=== PATIENT | male | born 1975 | race Caucasian/White ===

== ENCOUNTER → 2017-03-27 09:08 | Outpatient (CLI) | payer MEDICAID ==
[2016-03-10 02:38] VITALS: BMI 42.2
[~2017-03-27 09:08] MED LIST: GLUCOPHAGE1000 MG PO; PRINIVIL20 MG PO; PROAIR HFA8.5 GM INH
== END | disposition home or self-care (01) ==
LOC: D.US 09:08
DX: N50.89 Other specified disorders of the male genital organs (principal)

== ENCOUNTER 2017-03-30 23:45 | Emergency (ER) | payer MEDICAID ==
[2016-03-10 02:38] VITALS: BMI 42.2
[2017-03-31 00:15] LABS: HEMATOCRIT 52.3 % (42.0-54.0); HEMOGLOBIN 18.8 g/dL (13.5-17.5); LYMPHOCYTES 16.1 % (15-50); MCH 32.9 pg (26.0-34.0); MCHC 35.9 g/dL (31.0-37.0); MCV 91.4 fL (80.0-100.0); MEAN PLATELET VOLUME 9.9 fL (7.4-10.4); NEUTROPHILS 81.3 % (40-80); RBC 5.72 10x6/uL (4.20-6.10); RDW 13.3 % (11.5-14.5); WBC 10.2 10x3/uL (4.8-10.8)
[2017-03-31 00:19] LABS: PLATELET COUNT 216 10x3/uL (130-400)
[2017-03-31 01:26] LABS: ALBUMIN 3.7 g/dL (3.4-5.0); ALKALINE PHOSPHATASE 109 U/L (46-116); ALT (SGPT) 18 U/L (10-68); CALC OSMOLALITY 272 mosm/kg (275-300); CALCIUM 8.7 mg/dL (8.5-10.1); CARBON DIOXIDE 22.3 mmol/L (21.0-32.0); CHLORIDE - SERUM 98 mmol/L (98-107); CREATININE - SERUM 0.9 mg/dL (0.6-1.3); GLUCOSE 196 mg/dL (74-106); POTASSIUM - SERUM 3.8 mmol/L (3.5-5.1); PROTEIN - SERUM 7.6 g/dL (6.4-8.2); SODIUM 134 mmol/L (136-145); UREA NITROGEN 12 mg/dL (7-18); eGFR NON AFRICAN AMERICAN > 90 mL/min (90-120)
== END 2017-03-31 04:30 | disposition home or self-care (01) ==
LOC: D.ER 23:45
PROVIDERS: Emergency Medicine
DX: N45.1 Epididymitis (principal); E11.9 Type 2 diabetes mellitus without complications; K21.9 Gastro-esophageal reflux disease without esophagitis; I10 Essential (primary) hypertension; F17.200 Nicotine dependence, unspecified, uncomplicated

== ENCOUNTER 2017-07-13 18:51 | Inpatient (IN) | payer MEDICAID ==
[2017-07-13 22:12] LABS: BASOPHILS 0.1 % (0-2); EOSINOPHILS 0.3 % (0-7); HEMOGLOBIN 19.7 g/dL (13.5-17.5); IMMATURE GRANULOCYTES 0.1 % (0-5); LYMPHOCYTES 15.7 % (15-50); MCH 33.2 pg (26.0-34.0); MCHC 35.8 g/dL (31.0-37.0); MCV 92.6 fL (80.0-100.0); MEAN PLATELET VOLUME 11.4 fL (7.4-10.4); MONOCYTES 6.1 % (2-11); NEUTROPHILS 77.7 % (40-80); RBC 5.94 10x6/uL (4.20-6.10); RDW 12.4 % (11.5-14.5); WBC 8.6 10x3/uL (4.8-10.8)
[2017-07-13 22:13] LABS: PLATELET COUNT 152 10x3/uL (130-400)
[2017-07-13 22:41] LABS: ALBUMIN 4.1 g/dL (3.4-5.0); ALKALINE PHOSPHATASE 118 U/L (46-116); ALT (SGPT) 25 U/L (10-68); CALC OSMOLALITY 280 mosm/kg (275-300); CALCIUM 9.3 mg/dL (8.5-10.1); CARBON DIOXIDE 26.9 mmol/L (21.0-32.0); CHLORIDE - SERUM 98 mmol/L (98-107); CREATININE - SERUM 0.8 mg/dL (0.6-1.3); GLUCOSE 219 mg/dL (74-106); POTASSIUM - SERUM 4.2 mmol/L (3.5-5.1); PROTEIN - SERUM 7.6 g/dL (6.4-8.2); SODIUM 137 mmol/L (136-145); UREA NITROGEN 12 mg/dL (7-18); eGFR NON AFRICAN AMERICAN > 90 mL/min (90-120)
[2017-07-13 22:59] LABS: CREATINE KINASE 242 UL (21-232)
[2017-07-13 23:12] LABS: CKMB 1.2 U/L (0.0-3.6)
[2017-07-14 04:00] VITALS: BP 160/106
[2017-07-14 07:13] VITALS: BP 161/102
[2017-07-14 12:57] VITALS: BP 145/102
--- NOTE | 2017-07-14 14:14 | NUR ---
DR. STREETER CALLED TO INFORM PT HAS A RETROPERINEAL BLEED FROM GROIN CVL. ORDERS RECEIVED FOR BREVING CONSULT. DR. DAVILA CALLED AND ORDERS RECEIVED TO REMOVE CVL. DR. DAVILA TO CALL DR. STREETER.
--- NOTE | 2017-07-14 15:24 | NUR ---
GROIN CVL REMOVED ORDERED. SITE CLEANED AND SUTURES REMOVED X2. TIP INTACT. PRESSURE HELD FOR 5 MINS. PRESSURE DRESSING PLACED. PT MOANING WITH PAIN. EXPLAINED TO PT THAT ONLY MED THAT IS ORDERED IS ATIVAN. PT BECAME AGRESSIVE AND STATED HE WOULD GET HIS OWN MEDS. HE ALSO STATED HE WANT TO GET THE "FUCK" OUT OF HERE. EXPLAINED TO PT THAT IT WOULD AMA. PTS MOTHER TALKED HIM INTO STAYING HERE. DR. MURRAY ORDERED ONE TIME MS 2 MG IV. MED GIVEN.
[2017-07-14 16:00] VITALS: BP 133/97
[2017-07-14 16:00] LABS: HEMATOCRIT 45.5 % (42.0-54.0)
[2017-07-14 16:05] LABS: HEMOGLOBIN 15.1 g/dL (13.5-17.5)
[2017-07-14 18:45] VITALS: BP 133/97; BMI 34.0
--- NOTE | 2017-07-14 19:50 | NUR ---
ASSESSMENT COMPLETE. AAO. PT GROANING; C/O PAIN 8/10 IN LEFT GROIN. S1S2. RR CLEAR EQUAL; UNLABORED. PERRLA. DRESSING TO LEFT GROIN; CDI. RADIAL AND PEDAL PULSES PALPATED. CONTINENT. URINAL AT BEDSIDE. RT UPPER ARM MID LINE; PATENT.
[2017-07-14 20:00] VITALS: BP 126/76
--- NOTE | 2017-07-14 20:30 | NUR ---
AT BEDSIDE. UPDATE GIVEN. QUESTIONS ANSWERED.
--- NOTE | 2017-07-14 23:15 | NUR ---
AND PT STATED CONCERNS ABOUT PT IV USE AND UNSURE IF HIV POSITIVE AND HEP C. WILL ORDER LABS.
--- NOTE | 2017-07-15 00:25 | NUR ---
DILAUDID TRUCK DRIVER INSTRUCTOR INITIATED PER ORDERS. RECLINER CHAIR TAKEN TO ROOM FOR PTS . JOSE CLIFFORD ALSO GIVEN AT PT REQUEST.
--- NOTE | 2017-07-15 03:03 | NUR ---
RESTING WITH EYES CLOSED, RESPERATIONS EVEN, NO S/S DISTRESS NOTED.
[2017-07-15 04:00] VITALS: BP 130/80
[2017-07-15 04:42] LABS: BASOPHILS 0.2 % (0-2); EOSINOPHILS 0.3 % (0-7); IMMATURE GRANULOCYTES 0.2 % (0-5); LYMPHOCYTES 14.8 % (15-50); MCH 32.7 pg (26.0-34.0); MCV 93.5 fL (80.0-100.0); MEAN PLATELET VOLUME 11.1 fL (7.4-10.4); MONOCYTES 5.9 % (2-11); NEUTROPHILS 78.6 % (40-80); PLATELET COUNT 108 10x3/uL (130-400); RBC 4.28 10x6/uL (4.20-6.10); RDW 12.8 % (11.5-14.5); WBC 10.9 10x3/uL (4.8-10.8)
[2017-07-15 04:45] LABS: ALKALINE PHOSPHATASE 104 U/L (46-116); CALCIUM 8.2 mg/dL (8.5-10.1); CARBON DIOXIDE 27.1 mmol/L (21.0-32.0); CHLORIDE - SERUM 100 mmol/L (98-107); GLUCOSE 189 mg/dL (74-106); MAGNESIUM - SERUM 1.7 mg/dL (1.8-2.4); PHOSPHOROUS 3.5 mg/dL (2.5-4.9); PROTEIN - SERUM 6.1 g/dL (6.4-8.2); SODIUM 134 mmol/L (136-145); eGFR NON AFRICAN AMERICAN 88 mL/min (90-120)
[2017-07-15 04:54] LABS: ALT (SGPT) 51 U/L (10-68); CALC OSMOLALITY 274 mosm/kg (275-300); UREA NITROGEN 19 mg/dL (7-18)
--- NOTE | 2017-07-15 07:38 | NUR ---
ASSESSMENT DONE. DEIES NEEDS.
--- NOTE | 2017-07-15 08:12 | NUR ---
ORDERS RECEIVED FROM DR. STREETER TO DECREASE PANMAN TO DELIVER 0.2 Q 30. LISA IN PHARMACY TO CHANGE ORDER. LISA WILL DO.
[2017-07-15 08:35] VITALS: BP 195/86
--- NOTE | 2017-07-15 10:23 | NUR ---
RESTS WITH EYES CLOSED. SCALE TESTER FOR PAIN CONTROL NOTED. CALL LIGHT IN REACH. WILL CONT. PLAN OF CARE.
[2017-07-15 12:40] VITALS: BP 129/78
[2017-07-15 16:44] VITALS: BP 139/89
--- NOTE | 2017-07-15 17:12 | NUR ---
WITHOUT CHANGES OR DISTRESS NOTED AT THIS TIME.
[2017-07-15 19:00] VITALS: BP 146/90
--- NOTE | 2017-07-15 20:59 | NUR ---
PATIENT IS ALERT IN BED, STATES "PLEASE UNPLUG MY PHONE BECAUSE MY KEEPS CALLING AND UPSETTING ME". I UNPLUGGED THE PHONE REQUESTED. I ASKED IF SHE CALLED THE NURSES STATION WHAT DOES HE WANT ME TO TELL HER AND HE STATES " TELL HER TO LEAVE ME ALONE AND IF SHE COMES UP HERE HE WILL HAVE ME TO CALL SECURITY". I TOLD HIM TO CALL IF ANY ISSUES COME UP. CALL LIGHT IS IN REACH.
--- NOTE | 2017-07-16 02:26 | NUR ---
CALL LIGHT IN REACH. WILL CONTINUE WITH PLAN OF CARE. 78 SR ON TELEMETRY
[2017-07-16 04:46] LABS: BASOPHILS 0.3 % (0-2); EOSINOPHILS 0.7 % (0-7); HEMATOCRIT 35.1 % (42.0-54.0); HEMOGLOBIN 12.5 g/dL (13.5-17.5); IMMATURE GRANULOCYTES 0.1 % (0-5); LYMPHOCYTES 19.4 % (15-50); MCH 32.8 pg (26.0-34.0); MCHC 35.6 g/dL (31.0-37.0); MCV 92.1 fL (80.0-100.0); MEAN PLATELET VOLUME 10.4 fL (7.4-10.4); MONOCYTES 6.3 % (2-11); NEUTROPHILS 73.2 % (40-80); PLATELET COUNT 118 10x3/uL (130-400); RBC 3.81 10x6/uL (4.20-6.10); RDW 12.5 % (11.5-14.5)
[2017-07-16 04:48] LABS: WBC 6.9 10x3/uL (4.8-10.8)
[2017-07-16 05:01] LABS: ALBUMIN 2.6 g/dL (3.4-5.0); ALKALINE PHOSPHATASE 132 U/L (46-116); BILIRUBIN - TOTAL 0.39 mg/dL (0.2-1.3); CALCIUM 7.4 mg/dL (8.5-10.1); CARBON DIOXIDE 27.8 mmol/L (21.0-32.0); CHLORIDE - SERUM 100 mmol/L (98-107); CREATININE - SERUM 0.9 mg/dL (0.6-1.3); MAGNESIUM - SERUM 1.9 mg/dL (1.8-2.4); PROTEIN - SERUM 5.4 g/dL (6.4-8.2); SODIUM 135 mmol/L (136-145); eGFR NON AFRICAN AMERICAN > 90 mL/min (90-120)
[2017-07-16 05:04] LABS: ALT (SGPT) 100 U/L (10-68); CALC OSMOLALITY 280 mosm/kg (275-300); GLUCOSE 297 mg/dL (74-106); POTASSIUM - SERUM 3.3 mmol/L (3.5-5.1); UREA NITROGEN 12 mg/dL (7-18)
--- NOTE | 2017-07-16 07:08 | NUR ---
AM ROUNDS- PT IN BED, WITH EYES CLOSED, AROUSES EASILY TO VOICE. PT PUSHED PAIN BUTTON AT THIS TIME. RESP EVEN AND UNLABORED, NAD NOTED, BED LOW AND WHEELS LOCKED, CALL LIGHT IN REACH, WILL CONTINUE PLAN OF CARE.
--- NOTE | 2017-07-16 08:14 | NUR ---
AM MED GIVEN ALSO CHANGED MORPHNE CHIEF HYDROELECTRIC STATION OPERATOR SYRINGE. PT RATES PAIN LEVEL AT 8/10. PT DENIES ANY NEEDS AT THIS TIME. FRIEND AT BEDSIDE, NAD NOTED, CALL LIGHT IN REACH, WILL CONTINUE TO MONITOR.
[2017-07-16 09:14] LABS: HEPATITIS C ANTIBODY >11.0 (0.0-0.9)
[2017-07-16 10:22] VITALS: BP 132/85
--- NOTE | 2017-07-16 12:00 | NUR ---
PT C/O NOT PAIN BUTTON IS NOT WORKING. WENT TO CHECK MACHINE CAPTAIN PUMP AND PUMP SAYING MAX DOSE REACHED. TRIED EXPLAINING TO PT THAT THE REASON WHY HIS PAIN BUTTON IS NOT WORKING IF BECAUSE HE HAS REACHED HIS MAX DOSE WHICH IS 10MG. PT STATED " WELL THEY TOLD ME YESTERDAY THAT IF MORPHINE WAS NOT HELPING WITH MY PAIN THAT THEY WOULD GIVE ME DIALUDID INSTEAD. ALSO THE PAIN IS GOING DOWN THE BACK OF MY LEG. TOLD PT THAT I WOULD CALL DOCTOR BUT THAT HE WAS GETTING DILAUDID YESTERDAY AND IT WAS SWITCHED TO MOPHINE BECAUSE THE DILAUDID WAS MAKING HIM NAUSEAS AND GIVING HIM A HEAD ACHE. WILL GIVE PT A BOLUS FOR BREAKTHROUGHT PAIN. PAIN LEVEL OF 8/10. NAD NOTED, FAMILY AT BEDSIDE, CALL LIGHT IN REACH,NAD NOTED, WILL CONTINUE TO MONITOR.
[2017-07-16 12:08] VITALS: BP 142/86
--- NOTE | 2017-07-16 12:43 | NUR ---
2MG BOLUS GIVEN FOR PAIN LEVEL OF 8/10. PT DENIES ANY OTHER NEEDS AT THIS TIME. CALL LIGHT IN REACH, NAD NOTED, WILL CONINTUE TO MONITOR.
--- NOTE | 2017-07-16 13:20 | NUR ---
PT IN BED, WITH EYES CLOSED, NAD NOTED, CALL LIGHT REACH, FAMILY AT BEDSIDE, WILL CONTINUE TO MONITOR.
--- NOTE | 2017-07-16 14:44 | NUR ---
CALLED DR. STREETER'S OFFICE AND SPOKE WITH [facility] FOR DR. STREETER TO CALL ME BACK.
[2017-07-16 15:26] VITALS: BP 137/89
--- NOTE | 2017-07-16 19:15 | NUR ---
PATIENT IS ALERT IN BED, DENIES NEEDS AT THIS TIME. SR ON THE MONITOR, MIDLINE PATENT. CALL LIGHT IN REACH.
[2017-07-16 20:00] VITALS: BP 169/96
[2017-07-17 04:00] VITALS: BP 135/105
--- NOTE | 2017-07-17 05:40 | NUR ---
LYING IN BED WITH CALL LIGHT IN REACH. WILL CONTINUE WITH PLAN OF CARE.
--- NOTE | 2017-07-17 07:54 | NUR ---
PT SITTING UP IN BED ASLEEP NO S/S DISTRESS RR EVEN AND UNLABORED. FAMILY MEMBER AT BEDSIDE WILL CONT TO MONITOR
[2017-07-17 08:00] VITALS: BP 171/107
[2017-07-17 08:39] LABS: BASOPHILS 0.2 % (0-2); EOSINOPHILS 1.3 % (0-7); HEMOGLOBIN 12.8 g/dL (13.5-17.5); IMMATURE GRANULOCYTES 0.3 % (0-5); MCH 33.1 pg (26.0-34.0); MCHC 35.6 g/dL (31.0-37.0); MEAN PLATELET VOLUME 10.4 fL (7.4-10.4); MONOCYTES 5.8 % (2-11); NEUTROPHILS 73.4 % (40-80); PLATELET COUNT 130 10x3/uL (130-400); RBC 3.87 10x6/uL (4.20-6.10); RDW 12.4 % (11.5-14.5); WBC 6.2 10x3/uL (4.8-10.8)
[2017-07-17 08:56] LABS: ALBUMIN 2.8 g/dL (3.4-5.0); ALKALINE PHOSPHATASE 145 U/L (46-116); ALT (SGPT) 72 U/L (10-68); BILIRUBIN - TOTAL 0.57 mg/dL (0.2-1.3); CALC OSMOLALITY 276 mosm/kg (275-300); CALCIUM 8.5 mg/dL (8.5-10.1); CARBON DIOXIDE 31.7 mmol/L (21.0-32.0); CHLORIDE - SERUM 100 mmol/L (98-107); GLUCOSE 203 mg/dL (74-106); PHOSPHOROUS 3.3 mg/dL (2.5-4.9); POTASSIUM - SERUM 3.6 mmol/L (3.5-5.1); PROTEIN - SERUM 6.5 g/dL (6.4-8.2); SODIUM 136 mmol/L (136-145); UREA NITROGEN 11 mg/dL (7-18); eGFR NON AFRICAN AMERICAN 88 mL/min (90-120)
--- NOTE | 2017-07-17 09:40 | NUR ---
CALLED TO PT ROOM. PT IS IRRATE AND IS "WANTING A CIGARRETTE." PT WANTS TO BE UNHOOKED FROM MORPHINE INSPECTOR CIRCUITRY NEGATIVE AND GO OUTSIDE TO SMOKE. GOT THUAN DIE MAKER APPRENTICE. SHE TOLD PT THAT HE CAN NOT LEAVE THE UNIT SINCE HE HAS BEEN ON INSPECTOR CIRCUITRY NEGATIVE AND HAS TELE MONITORING. PT WANTS TO LEAVA AMA. DC MIDLINE CATHETER 14 IN WITH CATH TIP INTACT. DC TELE AND RETURNED TO DICTAPHONE TECHNICIAN. DC NICOTINE PATCH. EXPLAINED RISKS OF LEAVING AMA. PT SIGNED AMA FORM. DR STREETER WAS NOTIFIED. PT LEFT WITH GIRLFRIEND.
--- NOTE | 2017-07-17 09:48 | NUR ---
NOTIFIED DR. STREETER/ALFREDITO HULL VIA PHONE THAT PATIENT SIGNED AMA PAPER TO LEAVE DUE TO FACT HE WANTED TO GO SMOKE HOWEVER WAS ON A JUNK REMOVAL SPECIALIST PUMP. TOMOGRAPHIC TECH THUAN BOATENG SPOKE WITH PT AND HE ADVISED HE WANTED TO LEAVE AMA. MIDLINE DC'D BY SONNY/RICO.
--- NOTE | 2017-07-17 15:54 | NUR ---
NURSE FROM [facility] CALLED ASKING FOR MEDICAL INFORMATION. SAID PT IS THERE CURRENTLY. TOLD HER WE NEED A MEDICAL REQUEST FORM FOR ANY INFO THEN WE WILL SEND IT. SAID SHE WOULD FAX IT OVER
--- NOTE | 2017-07-28 09:40 | PN ---
PATIENT:GOVIND MONAE MEDICAL RECORD: [id number] LOCATION:D[facility] ADMISSION DATE: 07/15/17 PROGRESS NOTE DATE OF SERVICE: 07/15/2017 ADDENDUM For the typed portion of the progress note, please see the chart. CHIEF COMPLAINT: Pain. The patient states that his pain is better on the Dilaudid SENIOR ETL DEVELOPER. I felt that we really were not going to be able to get his pain under control completely; however, the Dilaudid SENIOR ETL DEVELOPER would help. He is having some nausea, he attributes that to the Dilaudid. I will put him on a morphine SENIOR ETL DEVELOPER. He seemed to do better with the p.r.n. morphine injections than he did with the Dilaudid SENIOR ETL DEVELOPER. His physical examination is really unchanged. inking machine tender in the left back, left lower quadrant as well as the left groin. No bruising at this time. Palpation aggravates. Nothing alleviates. Symptoms are somewhat improved. Radiation as is described above. For the typed portion of the progress note, please see the chart. This would include the past medical and surgical history, current medications, allergies, family history as well as social history. REVIEW OF SYSTEMS: Positive for nausea. No vomiting. No fever. No chills. Positive for back pain. Positive for abdominal pain. Positive for left groin pain. Positive for anxiety. The review of systems is negative other than as is described above. PHYSICAL EXAMINATION: GENERAL: The patient appears acutely ill, also appears chronically ill. VITAL SIGNS: Reviewed. EARS: External ears appear normal. FACE: Larry. EYES: Extraocular movements are intact. NECK: Trachea is midline. CHEST: No intercostal retractions. PULMONARY: Nonlabored. No stridor. ABDOMEN: As described above. No peritonitis to percussion. EXTREMITIES: No peripheral cyanosis. INTEGUMENT: No rash. No ulcerations. PSYCHIATRIC: Anxious affect. NEUROLOGIC: Nonfocal, no lethargy. BACK: Left costovertebral angle tenderness. LYMPHATIC: No lymphangitic streaking of the exposed extremities. IMPRESSION: Left retroperitoneal hematoma. I do think acute hemorrhage is occurring. PLAN: Expectant treatment. I will see the patient on a p.r.n. basis. TRANSINT:[id number] Voice Confirmation ID: [id number] DOCUMENT ID: [id number] PROGRESS NOTE [id number] MONAEGOVIND ROBERT MD at 0940 CC: [id number] DICTATION DATE: 07/17/171810 INSTRUCTOR CREELER: 07/18/17 0840 DIS IN 07/17/17 [id number] [place] [address]
--- NOTE | 2017-07-28 09:40 | CN ---
PATIENT NAME:GOVIND MONAE MEDICAL RECORD: [id number] : 79 LOCATION:D. D.2129 ADMIT DATE: 07/15/17 ACCOUNT: [id number] CONSULTING PHYSICIAN: CASTILLO DAVILA MD REFERRING PHYSICIAN: CHRIS LAGOS DO DATE OF CONSULTATION: 07/14/2017 CHIEF COMPLAINT: Pain. HISTORY OF PRESENT ILLNESS: The patient is complaining of significant pain. He likely has a low pain threshold. This is not to say that he does not have a reason to have pain; however, due to a reported history of significant drug abuse, this may have lowered his pain threshold. The patient underwent placement of a left groin central venous catheter in the Emergency Room, I am told. The patient now has a retroperitoneal hematoma. I personally reviewed the CT images. I have personally reviewed the x-ray report. Palpation aggravates. Nothing alleviates. He is very anxious. The pain starts all the way down in his left groin and testicle and radiates all the way up to his left kidney. He is tender in the left flank. The pain radiates as is described above. Symptoms came on rather suddenly. This hematoma likely will tampon on itself off. Exploring the hematoma would be quite hazardous. I have recommended expectant treatment. The patient should not take any anticoagulants. No nonsteroidal anti-inflammatories. Nothing that could thin his blood out. This is a consultation note addendum. For the typed portion of the consult note, please see the chart. This would include the past medical and surgical history, current medications, allergies, family history, as well as social history. REVIEW OF SYSTEMS: Positive for anxiety. Positive for flank pain. Positive for left lower quadrant abdominal pain. Positive for left groin pain. Positive for some shortness of breath. No chest pain, no nausea, no vomiting, no fever, no chills. The review of systems is negative other than as is described above. PHYSICAL EXAMINATION: GENERAL: The patient appears acutely ill. Also appears chronically ill. VITAL SIGNS: Reviewed. EARS: External ears appear normal. HEAD: The patient has a very jackie face. NECK: Trachea is midline. CHEST: No intercostal retractions. PULMONARY: Mildly labored. No stridor. Patient is somewhat tachypneic. PSYCHIATRIC: Anxious affect. NEUROLOGIC: Nonfocal, no lethargy. The patient answers questions appropriately, moves all extremities well. ABDOMEN: As described above. No peritonitis to percussion. EXTREMITIES: No peripheral cyanosis. INTEGUMENT: No rash, no ulcerations. BACK: No thoracic kyphosis. The patient does have a left costovertebral angle tenderness. LYMPHATICS: No lymphangitic streaking of the exposed extremities. CONSULT REPORT [id number] GOVIND MONAE IMPRESSION: Retroperitoneal hematoma. PLAN: Expectant treatment. I do not think an intervention is warranted at this time. TRANSINT:[id number] Voice Confirmation ID: [id number] DOCUMENT ID: [id number] CASTILLO DAVILA MD at 0940 CC: CAMRON STREETER DO [id number] DICTATION DATE: 07/17/171806 STRUCTURAL IRONWORKER: 07/17/17 190 DIS IN 07/17/17 [facility] [address] [place] [address]
== END 2017-07-17 10:17 | disposition left against medical advice (07) | DRG 314 ==
LOC: D.ER 18:51 → D.M2 07-14 03:33 → OBSVTIME 07-14 03:33 → D.M2 07-15 14:38
PROVIDERS: Emergency Medicine; Family Medicine; Surgery; ADMIT Family Medicine
PROC: 05HB33Z Insertion of Infusion Device into Right Basilic Vein, Percutaneous Approach (ICD-10-PCS; principal; 2017-07-14)
PROC: B54MZZA Ultrasonography of Right Upper Extremity Veins, Guidance (ICD-10-PCS; 2017-07-14)
DX: R58 Hemorrhage, not elsewhere classified (principal); K66.1 Hemoperitoneum; I10 Essential (primary) hypertension; E11.9 Type 2 diabetes mellitus without complications; N45.1 Epididymitis; F15.10 Other stimulant abuse, uncomplicated; F12.10 Cannabis abuse, uncomplicated; Z72.0 Tobacco use

== ENCOUNTER 2018-02-20 20:08 | Emergency (ER) | payer MEDICAID ==
[~2018-02-20] VITALS: Ht 182.9 cm; Wt 122.7 kg
[2018-02-20 20:43] VITALS: Ht 182.9 cm; Wt 122.7 kg
[2018-02-20 21:15] LABS: BASOPHILS 0.2 % (0-2); EOSINOPHILS 0.3 % (0-7); HEMATOCRIT 48.3 % (42.0-54.0); HEMOGLOBIN 17.9 g/dL (13.5-17.5); IMMATURE GRANULOCYTES 0.4 % (0-5); MCH 33.1 pg (26.0-34.0); MCHC 37.1 g/dL (31.0-37.0); MCV 89.4 fL (80.0-100.0); MEAN PLATELET VOLUME 10.8 fL (7.4-10.4); MONOCYTES 3.1 % (2-11); RDW 12.3 % (11.5-14.5); WBC 11.1 10x3/uL (4.8-10.8)
[2018-02-20 21:20] LABS: PLATELET COUNT 162 10x3/uL (130-400)
[2018-02-20 21:22] LABS: APPEARANCE HAZY (CLEAR); BILIRUBIN NEGATIVE (NEGATIVE); COLOR YELLOW (YELLOW); GLUCOSE 1000 mg/dL (NEGATIVE); KETONE NEGATIVE (NEGATIVE); NITRITE NEGATIVE (NEGATIVE); PROTEIN NEGATIVE (NEGATIVE); SPECIFIC GRAVITY 1.005 (1.005-1.020); UROBILINOGEN NORMAL (NORMAL)
[2018-02-20 21:30] LABS: UDS - AMPHET NEGATIVE QUAL (NEGATIVE); UDS - BARB NEGATIVE QUAL (NEGATIVE); UDS - BENZO NEGATIVE QUAL (NEGATIVE); UDS - COCAINE NEGATIVE QUAL (NEGATIVE); UDS - OPIATE NEGATIVE QUAL (NEGATIVE); UDS - PCP NEGATIVE QUAL (NEGATIVE); UDS - THC POSITIVE QUAL (NEGATIVE)
[2018-02-20 21:36] LABS: ALBUMIN 3.9 g/dL (3.4-5.0); ALKALINE PHOSPHATASE 95 U/L (46-116); ALT (SGPT) 36 U/L (10-68); AMYLASE - SERUM 27 U/L (25-115); BILIRUBIN - TOTAL 0.69 mg/dL (0.2-1.3); CALC OSMOLALITY 276 mosm/kg (275-300); CARBON DIOXIDE 27.8 mmol/L (21.0-32.0); CHLORIDE - SERUM 97 mmol/L (98-107); GLUCOSE 235 mg/dL (74-106); LIPASE 137 U/L (73-393); POTASSIUM - SERUM 3.7 mmol/L (3.5-5.1); SODIUM 135 mmol/L (136-145); UREA NITROGEN 10 mg/dL (7-18); eGFR NON AFRICAN AMERICAN 88 mL/min (90-120)
[2018-02-20] MEDS ORDERED: CIPRO500 MG PO (23:39)
[2018-02-20] MEDS ORDERED: FLAGYL500 MG PO (23:39)
[2018-02-20] MEDS ORDERED: ZOFRAN ODT4 MG/UDTAB PO (23:39)
[2018-02-21 00:10] VITALS: BP 132/77
== END 2018-02-21 00:10 | disposition home or self-care (01) ==
LOC: D.ER 20:08
PROVIDERS: Family Medicine
DX: K52.9 Noninfective gastroenteritis and colitis, unspecified (principal); R10.9 Unspecified abdominal pain; E11.9 Type 2 diabetes mellitus without complications; R19.7 Diarrhea, unspecified; I10 Essential (primary) hypertension; F17.200 Nicotine dependence, unspecified, uncomplicated; F50.89 Other specified eating disorder